=== PATIENT | female | born 1990 | race Caucasian/White ===

== ENCOUNTER 2020-07-26 00:10 | Emergency (ER) | payer SELFPAY ==
[~2020-07-26] VITALS: Ht 167.6 cm; Wt 62.7 kg
[~2020-07-26 00:10] MED LIST: DUO-KAPS1 CAP PO; PREDNISONE20 MG PO; TESSALON P100 MG/CAP PO; ZOVIRAX800 MG PO
[2020-07-26 00:43] VITALS: TEMP 98.1
[2020-07-26 01:33] LABS: BASO # 0.1 (0.0-0.2); BASO % 0.7 % (0.0-2.0); EOS # 0.1 (0.0-0.7); GRAN # 4.6 (1.4-6.5); GRAN % 65.1 % (42.2-75.2); HEMATOCRIT 37.6 % (37.0-47.0); HEMOGLOBIN 12.7 g/dl (12.5-16.0); LYMPH # 1.8 (1.2-3.4); LYMPH % 25.3 % (20.0-51.0); MEAN CELL VOLUME 89 fl (80.0-100.0); MEAN CORPUSCULAR HEMOGLOBIN 30 pg (27.0-31.0); MEAN CORPUSCULAR HGB CONC 34 g/dl (33.0-37.0); MEAN PLATELET VOLUME 10.5 fl (7.4-10.4); MONO # 0.6 (0.1-0.6); MONO % 7.8 % (1.7-9.3); PLATELET COUNT 309 K/mm3 (130-400); RED BLOOD COUNT 4.24 M/mm3 (4.10-5.30); REDCELL DISTRIBUTION WIDTH-CV 12.2 % (11.5-14.5)
[2020-07-26 01:42] LABS: ANION GAP 9 mmol/L (7-16); BLOOD UREA NITROGEN 14 mg/dL (7-17); CALCIUM 9.5 mg/dL (8.4-10.2); CARBON DIOXIDE 25 mmol/L (22-30); CHLORIDE 102 mmol/L (98-107); CREATININE, serum 0.84 (0.52-1.25); GLUCOSE 92 mg/dL (74-106); POTASSIUM 3.6 mmol/L (3.4-5.0); SODIUM 137 mmol/L (137-145)
[2020-07-26 01:50] LABS: TRICYCLIC ANTIDEPRESS URINE NEGATIVE
[2020-07-26 02:05] LABS: TROPONIN-I < 0.012 ng/mL (0.000-0.035)
[2020-07-26 02:28] VITALS: BP 117/72; PULSE 72
[2021-02-14] MEDS ORDERED: ADDERALL5 MG PO (23:59)
[2021-02-14] MEDS ORDERED: ATIVAN 0.50.5 MG/TAB PO (23:59)
[2021-02-14] MEDS ORDERED: ZYPREXA2.5 MG PO (23:59)
== END 2020-07-26 02:29 | disposition home or self-care (01) ==
LOC: COL.ER 00:10
PROVIDERS: Emergency Medicine
DX: F15.10 Other stimulant abuse, uncomplicated (principal); F17.210 Nicotine dependence, cigarettes, uncomplicated; Z79.52 Long term (current) use of systemic steroids
CPT/HCPCS: J1885

== ENCOUNTER 2024-01-30 14:18 | Emergency (ER) | payer SELFPAY ==
[~2024-01-30] VITALS: Ht 167.6 cm; Wt 59.1 kg
[~2024-01-30 14:18] MED LIST changes: +ADDERALL5 MG PO; +ATIVAN 0.50.5 MG/TAB PO; +CLEOCIN HCL300 MG PO; +NORCO 325 MG-51 TAB PO; +ZOFRAN ODT4 MG PO; +ZYPREXA2.5 MG PO
[2024-01-30 14:27] VITALS: TEMP 98.4
[2024-01-30] MEDS ORDERED: SUBOXONE 8 MG-21 TAB SL (14:45)
[2024-01-30 15:09] VITALS: BP 122/79; PULSE 102
[2024-01-30] MEDS ORDERED: ABILIFY 15MG TA15 MG (15:16)
[2024-01-30] MEDS ORDERED: WELLBUTRIN XL150 MG PO (15:16)
== END 2024-01-30 15:05 | disposition home or self-care (01) ==
LOC: COL.ER 14:18
DX: F11.20 Opioid dependence, uncomplicated (principal); Z76.0 Encounter for issue of repeat prescription